=== PATIENT | female | born 1975 ===

== ENCOUNTER 2017-06-17 19:35 | Emergency (ER) | payer OTHER ==
[2017-06-17 19:35] VITALS: BMI 29.7
[2017-06-17 20:53] VITALS: BP 145/80; PULSE 74; RESP 16; TEMP 99; O2SAT 100
[2017-06-17] MEDS ORDERED: Sodium Chloride 0.9% 1,000 ML IV STA (21:06)
--- NOTE | 2017-06-17 21:07 | ED PDOC ---
Arrival/HPI - General Historian: Patient <Noel Soriano - Last Filed: 06/17/17 23:45> <Hadley Martinez - Last Filed: 06/20/17 07:31> - General Chief Complaint: Abdominal Pain Time Seen by Provider: 06/17/17 21:05 - History of Present Illness Narrative History of Present Illness (Text): 06/17/17 21:06 41 y/o female, pmh including migraine, allergic to penicillin, c/o suprapubic pressure with blood tinged urine and vaginal bleeding started today. Pt. stated that she feels on her menopausal period. Pt. feels the suprapubuc cramping on and off. Pt. has no fever or chills, no abdominal pain, no night sweat, no dizziness, no change in appetize, no other medial or psychological complaints. 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 - Neurological Hx Neurological Disorder: No Other/Comment: pitituary microadenoma - HEENT Hx HEENT Disorder: No - Renal Hx Renal Disorder: No Other/Comment: kidneys attached together - Endocrine/Metabolic Hx Endocrine Disorders: No - Hematological/Oncological Hx Blood Disorders: No - Integumentary Hx Dermatological Disorder: No - Musculoskeletal/Rheumatological Hx Musculoskeletal Disorders: No - Gastrointestinal Hx Gastrointestinal Disorders: No - Genitourinary/Gynecological Hx Genitourinary Disorders: No - Psychiatric Hx Depression: No Hx Substance Use: No - Surgical History Hx Section: Yes Hx Cholecystectomy: Yes - Anesthesia Hx Anesthesia: No - Suicidal Assessment Feels Threatened In Home Enviroment: No <Noel Soriano - Last Filed: 06/17/17 23:45> Family/Social History - Physician Review Nursing Documentation Reviewed: Yes Family/Social History: Unknown Family HX Smoking Status: Never Smoked Hx Alcohol Use: No Hx Substance Use: No <Noel Soriano - Last Filed: 06/17/17 23:45> Allergies/Home Meds <Noel Soriano - Last Filed: 06/17/17 23:45> <Hadley Martinez - Last Filed: 06/20/17 07:31> Allergies/Adverse Reactions: Allergies Penicillins Allergy (Verified 09/15/16 00:45) RASH Home Medications: Home Meds Medication Instructions Recorded Confirmed Cabergoline 0.5 mg PO QWK 06/17/17 06/17/17 Review of Systems - Review of Systems Constitutional: absent: Fatigue, Fevers Eyes: absent: Vision Changes ENT: absent: Hearing Changes Respiratory: absent: SOB, Cough Cardiovascular: absent: Chest Pain Gastrointestinal: absent: Abdominal Pain, Nausea, Vomiting Genitourinary Female: Hematuria, Vaginal Bleeding. absent: Dysuria, Frequency, Urine Output Changes, Vaginal Discharge Musculoskeletal: absent: Arthralgias, Back Pain Skin: absent: Rash, Pruritis Neurological: absent: Headache, Dizziness, Focal Weakness <Noel Soriano - Last Filed: 06/17/17 23:45> Physical Exam Vital Signs Reviewed: Yes Temperature: Afebrile Blood Pressure: Normal Pulse: Regular Respiratory Rate: Normal Appearance: Positive for: Well-Appearing, Non-Toxic Pain Distress: Moderate Mental Status: Positive for: Alert and Oriented X 3 - Systems Exam Head: Present: Atraumatic, Normocephalic Pupils: Present: PERRL Extroacular Muscles: Present: EOMI Conjunctiva: Present: Normal Mouth: Present: Moist Mucous Membranes Neck: Present: Normal Range of Motion Respiratory/Chest: Present: Clear to Auscultation, Good Air Exchange. No: Respiratory Distress, Accessory Muscle Use Cardiovascular: Present: Regular Rate and Rhythm, Normal S1, S2. No: Murmurs Abdomen: Present: Normal Bowel Sounds. No: Tenderness, Distention, Peritoneal Signs, Rebound, Guarding Genitourinary/Pelvic Exam: Present: Normal External Genitalia, Vaginal Bleeding , Cervical os Closed, Other (Female Heel Cover Softener[facility] No: Vaginal Discharge, Vaginal Lesions, Adenexal Tenderness, Adenexal Mass, Cervical Motion Tendernes, Odor Back: Present: Normal Inspection, CVA Tenderness (+rt. cva), Other (no rash) Upper Extremity: Present: Normal Inspection. No: Cyanosis, Edema Lower Extremity: Present: Normal Inspection. No: Edema Neurological: Present: GCS=15, Speech Normal, Motor Func Grossly Intact, Gait Normal, Memory Normal Skin: Present: Warm, Dry, Normal Color. No: Rashes Psychiatric: Present: Alert, Oriented x 3, Normal Insight, Normal Concentration <Noel Soriano - Last Filed: 06/17/17 23:45> Medical Decision Making - Lab Interpretations I have reviewed the lab results: Yes Interpretation: No clinic. lab abnormalty <Noel Soriano - Last Filed: 06/17/17 23:45> <Hadley Martinez - Last Filed: 06/20/17 07:31> ED Course and Treatment: 06/17/17 21:10 -labs/ua -CT abdomen and pelvis -IVF -observe and reassess 06/17/17 23:05 -Labs are non-significant -CT show no acute findings or obstructing stone -Pt. has no vaginal bleeding, IV toradol ordered for pain -Pt. has no adnexal tenderness. 06/17/17 23:45 -Pt. feels better -Pt. feels like she's on her UTI, UA show no UTI, gc/chlamydia ordered, refused to be prophylatically treated, will give macrobid -Discharge home with macrobid, motrin, stay hydrated, bed rest, follow up with your own pmd and obgyn wuithin 2 days, return to the ER for any new or worsening signs or symptoms. (Noel Soriano) - Lab Interpretations Lab Results: 06/17/17 21:18 06/17/17 21:18 Lab Results 06/17/17 21:18: Sodium 141, Potassium 3.5 L, Chloride 106, Carbon Dioxide 26, Anion Gap 13, BUN 10, Creatinine 0.6, Est GFR ( Amer) > 60, Est GFR (Non- Af Amer) > 60, Random Glucose 100, Calcium 8.6, Total Bilirubin 0.4, AST 43 H, ALT 48, Alkaline Phosphatase 86, Total Protein 8.1, Albumin 4.2, Globulin 3.9, Albumin/Globulin Ratio 1.1 06/17/17 21:18: WBC 8.0 D, RBC 4.05, Hgb 12.9, Hct 37.1, MCV 91.6, MCH 31.9, MCHC 34.8, RDW 12.8, Plt Count 201, MPV 10.1, Gran % 72.9 H, Lymph % (Auto) 19.2 L, Gage % (Auto) 7.0 H, Eos % (Auto) 0.7 L, Baso % (Auto) 0.2, Gran # 5.86 , Lymph # 1.5, Gage # 0.6, Eos # 0.1, Baso # 0.02 06/17/17 21:07: Urine Color Yellow, Urine Appearance Clear, Urine pH 7.0, Ur Specific [place] 1.015, Urine Protein Negative, Urine Glucose (UA) Negative, Urine Ketones Negative, Urine Blood Large H, Urine Nitrate Negative, Urine Bilirubin Negative, Urine Urobilinogen 0.2, Ur Leukocyte Esterase Negative, Urine RBC 2 - 5, Urine WBC 0 - 2, Ur Epithelial Cells 0 - 2, Urine Bacteria Few - RAD Interpretation Radiology Orders: 06/17/17 21:28 ABDOMEN & PELVIS [ABD & PELVIS W/O PO OR IV CONT] [CT] Stat - Medication Orders Current Medication Orders: Discontinued Medications Sodium Chloride (Sodium Chloride 0.9%) 1,000 mls @ 999 mls/hr IV .Q1H1M STA Stop: 06/17/17 22:06 Last Admin: 06/17/17 21:35 Dose: 999 mls/hr Ketorolac Tromethamine (Toradol) 30 mg IVP STAT STA Stop: 06/17/17 23:07 Last Admin: 06/17/17 23:25 Dose: 30 mg Potassium Chloride (K-Dur 20 Meq Er Tab) 20 meq PO STAT STA Stop: 06/17/17 22:27 Last Admin: 06/17/17 22:52 Dose: 20 meq - PA / DESIGN PRINTER BALLOON / Resident Statement ABIMAEL has reviewed & agrees with the documentation as recorded. <Noel Soriano - Last Filed: 06/17/17 23:45> - PA / DESIGN PRINTER BALLOON / Resident Statement ABIMAEL has reviewed & agrees with the documentation as recorded. <Hadley Martinez - Last Filed: 06/20/17 07:31> Disposition/Present on Arrival - Present on Arrival Any Indicators Present on Arrival: No History of DVT/PE: No History of Uncontrolled Diabetes: No Urinary Catheter: No History of Decub. Ulcer: No History Surgical Site Infection Following: None - Disposition Have Diagnosis and Disposition been Completed?: Yes Disposition Time: 23:48 Patient Plan: Discharge <Noel Soriano - Last Filed: 06/17/17 23:45> <Hadley Martinez - Last Filed: 06/20/17 07:31> - Disposition Diagnosis: Vaginal bleeding Disposition: HOME/ ROUTINE Condition: IMPROVED Additional Instructions: -Discharge home with macrobid, motrin, stay hydrated, bed rest, follow up with your own pmd and obgyn wuithin 2 days, return to the ER for any new or worsening signs or symptoms. Prescriptions: Ibuprofen [Motrin Tab] 600 mg PO QID PRN #24 tab PRN Reason: Other Nitrofurantoin Macrocrystals [Macrobid] 100 mg PO BID #14 cap Referrals: PCP,NO [Primary Care Provider] - Follow up with primary Edith Juarez MD [Staff Provider] - Follow up with primary [facility] [place] - Follow up with primary Forms: [email or web address] (Macedonian), WORK NOTE
[2017-06-17 21:16] LABS: URINE BILIRUBIN NEGATIVE (NEGATIVE); URINE BLOOD LARGE (NEGATIVE); URINE GLUCOSE (UA) NEGATIVE (NEGATIVE); URINE LEUKOCYTE ESTERASE NEGATIVE Leu/uL (NEGATIVE); URINE NITRATE NEGATIVE (NEGATIVE); URINE PROTEIN NEGATIVE mg/dL (<30 mg/dL); URINE UROBILINOGEN 0.2 E.U./dL (<1 E.U./dL)
[2017-06-17 21:29] LABS: BASO # 0.02 K/mm3 (0.0-2.0); BASO % 0.2 % (0.0-3.0); EOS # 0.1 (0.0-0.7); EOS % 0.7 % (1.5-5.0); GRAN # 5.86 (1.4-6.5); GRAN % 72.9 % (50.0-68.0); HEMOGLOBIN 12.9 g/dL (12.0-16.0); LYMPH # 1.5 (1.2-3.4); LYMPH % 19.2 % (22.0-35.0); MEAN CELL VOLUME 91.6 fl (80.0-105.0); MEAN CORPUSCULAR HEMOGLOBIN 31.9 pg (25.0-35.0); MEAN CORPUSCULAR HGB CONC 34.8 g/dl (31.0-37.0); MEAN PLATELET VOLUME 10.1 fl (7.0-11.0); MONO # 0.6 (0.1-0.6); PLATELET COUNT 201 10^3/uL (120.0-450.0); RBC 4.05 10^6/uL (3.5-6.1); RED CELL DISTRIBUTION WIDTH 12.8 % (11.5-14.5)
[2017-06-17 21:38] LABS: ALB/GLOB RATIO 1.1 (1.1-1.8); ALBUMIN 4.2 g/dL (3.0-4.8); ALT/SGPT 48 U/L (7-56); AST/SGOT 43 U/L (15-39); BLOOD UREA NITROGEN 10 mg/dL (7-21); CALCIUM 8.6 mg/dL (8.4-10.5); GFR AFRICAN-AMERICAN > 60; GFR NON-AFRICAN AMERICAN > 60
[2017-06-17 21:41] LABS: URINE APPEARANCE CLEAR (CLEAR); URINE COLOR YELLOW (YELLOW)
[2017-06-17 21:58] LABS: URINE BACTERIA FEW (NEG); URINE EPITHELIAL CELLS 0 - 2 /hpf (0-5); URINE WBC 0 - 2 /hpf (0-6)
--- NOTE | 2017-06-17 22:22 | CT ---
EXAM: CT Abdomen and Pelvis Without Intravenous Contrast CLINICAL HISTORY: 41 years old, female; Pain; Abdominal pain; Flank; Right; Additional info: Rt. Flank pain and hematuria TECHNIQUE: Axial computed tomography images of the abdomen and pelvis without intravenous contrast. This CT exam was performed using one or more of the following dose reduction techniques: automated exposure control, adjustment of the mA and/or kV according to patient size, and/or use of iterative reconstruction technique. Coronal and sagittal reformatted images were created and reviewed. COMPARISON: CT - ABD PELVIS W/O PO OR IV CONT 09/15/2016 1:47:07 AM FINDINGS: Lower thorax: No acute findings. ABDOMEN: Liver: Unremarkable. Gallbladder and bile ducts: Cholecystectomy. No ductal dilation. Pancreas: Unremarkable. No ductal dilation. Spleen: No splenomegaly. Adrenals: No mass. 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 No renal calculi. No hydronephrosis. Stomach and bowel: No definite mural thickening. No obstruction. Appendix: Normal caliber. No inflammation. PELVIS: Bladder: Unremarkable. No stones. Reproductive: Unremarkable as visualized. ABDOMEN and PELVIS: Intraperitoneal space: No significant fluid collection. No free air. Bones/joints: No acute fracture. Soft tissues: Injection granulomas within gluteal soft tissues. Vasculature: Unremarkable. No aneurysm. Lymph nodes: Few calcified lymph nodes within mesentery. IMPRESSION: 1. No CT evidence of urolithiasis. 2. Incidental/non-acute findings are described above.
[2017-06-17] MEDS ORDERED: Potassium Chloride 20 mEq ER Tab PO STA (22:26)
== END 2017-06-17 23:49 | disposition home or self-care (01) ==
LOC: ED 19:35
DX: N93.9 Abnormal uterine and vaginal bleeding, unspecified (principal)
CPT/HCPCS: 74176; 80053; 81001; 85025; 96374; 99283; J1885; J7040

== ENCOUNTER 2017-08-14 22:48 | Emergency (ER) | payer OTHER ==
[2017-08-14 22:54] VITALS: BMI 28.7
[2017-08-14 23:22] VITALS: BP 135/62; PULSE 75; RESP 18; TEMP 98; O2SAT 99
--- NOTE | 2017-08-14 23:36 | ED PDOC ---
Arrival/HPI <Isaac Adknis - Last Filed: 08/15/17 03:18> <NunezMick - Last Filed: 08/15/17 03:56> - General Chief Complaint: Chest Pain Time Seen by Provider: 08/14/17 23:03 - History of Present Illness Narrative History of Present Illness (Text): 41 year old female with a past medical history of pituitary microadenoma, complex migraines, and recently completed tuberculosis prophylaxis/treatment who presents with chest discomfort and paresthesias. She was laying in bed at 5: 00 PM and had a 3 minute episode of palpitations, right hand, right face, and right foot tingling that spontaneously resolved. She denies nausea, vomiting, shortness of breath, diaphoresis or unilateral weakness and numbness, visual changes or focal neurologic deficits. She denies any tobacco or illicit drug use or a family history significant for CAD or premature from [place]. She has a family history significant for DM and thyroid disease. 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 - Neurological Hx Neurological Disorder: No Other/Comment: pitituary microadenoma - HEENT Hx HEENT Disorder: No - Renal Hx Renal Disorder: No Other/Comment: kidneys attached together - Endocrine/Metabolic Hx Endocrine Disorders: No - Hematological/Oncological Hx Blood Disorders: No - Integumentary Hx Dermatological Disorder: No - Musculoskeletal/Rheumatological Hx Musculoskeletal Disorders: No - Gastrointestinal Hx Gastrointestinal Disorders: No - Genitourinary/Gynecological Hx Genitourinary Disorders: No - Psychiatric Hx Depression: No Hx Substance Use: No - Surgical History Hx Section: Yes (x2) Hx Cholecystectomy: Yes Hx Dilation and Curettage: Yes - Anesthesia Hx Anesthesia: Yes Hx Anesthesia Reactions: No Hx Malignant Hyperthermia: No - Suicidal Assessment Feels Threatened In Home Enviroment: No <Isaac Adkins - Last Filed: 08/15/17 03:18> Family/Social History - Physician Review Nursing Documentation Reviewed: Yes Family/Social History: Diabetes Smoking Status: Never Smoked Hx Alcohol Use: No Hx Substance Use: No <Isaac Adkins - Last Filed: 08/15/17 03:18> Allergies/Home Meds <Isaac Adkins - Last Filed: 08/15/17 03:18> <Mick Nunez - Last Filed: 08/15/17 03:56> Allergies/Adverse Reactions: Allergies Penicillins Allergy (Verified 09/15/16 00:45) RASH Home Medications: Home Meds Medication Instructions Recorded Confirmed Cabergoline 0.5 mg PO QWK 06/17/17 08/14/17 Review of Systems - Review of Systems Constitutional: Normal. absent: Fatigue, Weight Change, Fevers Eyes: absent: Vision Changes, Photophobia Respiratory: Normal. absent: SOB, Cough Cardiovascular: Palpitations. absent: Calf Pain Gastrointestinal: Normal. absent: Nausea, Vomiting Musculoskeletal: Normal. absent: Back Pain, Neck Pain Skin: Normal. absent: Rash, Skin Lesions Neurological: absent: Facial Droop, Disequilibrium Endocrine: absent: Polydipsia Hemo/Lymphatic: absent: Easy Bleeding, Easy Bruising Psychiatric: absent: Anxiety, Depression <Isaac Adkins - Last Filed: 08/15/17 03:18> Physical Exam Temperature: Afebrile Blood Pressure: Normal Pulse: Regular Respiratory Rate: Normal Appearance: Positive for: Well-Appearing, Non-Toxic Pain Distress: None Mental Status: Positive for: Alert and Oriented X 3 - Systems Exam Head: Present: Atraumatic, Normocephalic Pupils: Present: PERRL Extroacular Muscles: Present: EOMI Conjunctiva: Present: Injected Mouth: Present: Moist Mucous Membranes Pharnyx: Present: Normal. No: ERYTHEMA, EXUDATE Neck: Present: Normal Range of Motion. No: JVD, Bruit Respiratory/Chest: Present: Clear to Auscultation, Good Air Exchange. No: Respiratory Distress, Accessory Muscle Use Cardiovascular: Present: Regular Rate and Rhythm, Normal S1, S2 Abdomen: Present: Normal Bowel Sounds. No: Tenderness, Distention Back: Present: Normal Inspection. No: CVA Tenderness Upper Extremity: Present: Normal Inspection, Neurovascularly Intact Lower Extremity: Present: Normal Inspection. No: Edema Neurological: Present: CN II-XII Intact, Speech Normal, Motor Func Grossly Intact, Normal Sensory Function, Normal Cerebellar Funct Skin: Present: Warm, Dry, Normal Color. No: Diaphoretic Psychiatric: Present: Alert, Oriented x 3, Normal Insight, Normal Concentration <Isaac Adkins - Last Filed: 08/15/17 03:18> Vital Signs Temp Pulse Resp BP Pulse Ox 08/14/17 23:21 98 F 75 18 135/62 99 Medical Decision Making <Isaac Adkins - Last Filed: 08/15/17 03:18> - Lab Interpretations I have reviewed the lab results: Yes - EKG Interpretation Interpreted by ED Physician: Yes Type: 12 lead EKG <Mick Nunez - Last Filed: 08/15/17 03:56> ED Course and Treatment: EKG shows normal sinus rhythm and normal rate. D-Dimer negative. K was 3.2, repleted with 40 mg K-dur. Serum Magnesium ordered. Second Troponin I timed at 2:45. 08/15/17 00:15 Mg 2.1, troponin x2 negative. 08/15/17 03:31 (Isaac Adkins) 08/15/17 00:56 41-year-old female who presents with symptoms of atypical chest pain no cardiac risk factors whatsoever. Likely GERD however due to the atypical nature we will check serial troponins and likely discharge her heart score is zero Interviewed and examined the patient myself along with the resident and she'll manage the patient second cardiac markers negative patient is very low risk for cardiac disease we will discharge she is to follow-up as an outpatient. She had mild hypokalemia which is repleted with by mouth medication for signs of hypoglycemia. 08/15/17 03:55 (Mick Nunez) - Lab Interpretations Lab Results: 08/15/17 00:15 Lab Results 08/15/17 03:01: Magnesium 2.1, Troponin I < 0.01 08/15/17 00:54: POC Glucose (mg/dL) 90 08/15/17 00:15: D-Dimer, Quantitative 0.28 08/15/17 00:15: PT 11.3, INR 1.05, APTT 29.7 08/15/17 00:15: Sodium 141, Potassium 3.2 L, Chloride 105, Carbon Dioxide 26, Anion Gap 13, BUN 15, Creatinine 0.6 L, Est GFR ( Amer) > 60, Est GFR ( Non-Af Amer) > 60, Random Glucose 98, Calcium 8.7, Total Bilirubin 0.6, AST 33, ALT 36, Alkaline Phosphatase 72, Lactate Dehydrogenase 347, Total Creatine Kinase 60, Troponin I < 0.01, Total Protein 7.6, Albumin 4.1, Globulin 3.5, Albumin/Globulin Ratio 1.2 - RAD Interpretation Radiology Orders: 08/14/17 23:12 X-RAY [CHEST PORTABLE] [RAD] Stat - EKG Interpretation EKG Interpretation (Text): 08/15/17 00:55 Normal sinus rhythm at 74 bpm left axis deviation no ST changes QTc is 439 ms QRS is 100 ms [place] interval is 154 ms no ectopy interpretation: normal EKG (Mick Nunez) - Medication Orders Current Medication Orders: Discontinued Medications Al Hydrox/Mg Hydrox/Simethicone (Maalox Plus 30 Ml) 30 ml PO STAT STA Stop: 08/15/17 00:03 Last Admin: 08/15/17 00:43 Dose: 30 ml Belladonna/Phenobarbital ( Elixir) 5 ml PO STAT STA Stop: 08/15/17 00:07 Last Admin: 08/15/17 00:43 Dose: 5 ml Diazepam (Valium) 2 mg PO ONCE ONE PRN Reason: Protocol Stop: 08/15/17 00:13 Last Admin: 08/15/17 00:43 Dose: 2 mg Lidocaine HCl (Lidocaine 2% Viscous) 15 ml PO STAT STA Stop: 08/15/17 00:06 Last Admin: 08/15/17 00:43 Dose: 15 ml Potassium Chloride (K-Dur 20 Meq Er Tab) 40 meq PO STAT STA Stop: 08/15/17 01:20 Last Admin: 08/15/17 02:05 Dose: 40 meq - PA / TELETYPEWRITER OPERATOR / Resident Statement /DO has examined the patient and agrees with the treatment plan. <Mick Nunez - Last Filed: 08/15/17 03:56> Disposition/Present on Arrival - Present on Arrival Any Indicators Present on Arrival: No History of DVT/PE: No History of Uncontrolled Diabetes: No Urinary Catheter: No History of Decub. Ulcer: No History Surgical Site Infection Following: None <Isaac Adkins - Last Filed: 08/15/17 03:18> - Present on Arrival Any Indicators Present on Arrival: No History of DVT/PE: No History of Uncontrolled Diabetes: No Urinary Catheter: No History of Decub. Ulcer: No - Disposition Have Diagnosis and Disposition been Completed?: Yes Disposition Time: 03:43 Patient Plan: Discharge <Nunez,Mick P - Last Filed: 08/15/17 03:56> - Disposition Diagnosis: Chest pain, Anxiety Disposition: HOME/ ROUTINE Patient Problems: Current Active Problems Problem Status Onset Anxiety Acute Chest pain Acute Chest pain Acute Chest pain Acute Condition: IMPROVED Discharge Instructions (ExitCare): Chest Pain (ED), Hypokalemia (ED), Generalized Anxiety Disorder (ED), Gastroesophageal Reflux Disease (ED) Print Language: COMORAN Prescriptions: Famotidine [Pepcid] 20 mg PO BID #30 tab Referrals: at [facility] [place] [Outside] - Follow up with primary (followup for your medical issues and for treatment of gastritis and anxiety) Wayne Murcia MD [Staff Provider] - Follow up with primary (followup for a stress test if your pain continues. ) Forms: [employer] (Tongan)
[2017-08-15] MEDS ORDERED: Alum-Mag Hydrox-Simethicone Susp (30 mL) PO STA (00:02)
[2017-08-15] MEDS ORDERED: Atrop/Hyosc/Scopal/PB Elixir (120 ml) PO STA (00:06)
[2017-08-15 01:00] LABS: ALB/GLOB RATIO 1.2 (1.1-1.8); ALKALINE PHOSPHATASE 72 U/L (38-126); ALT/SGPT 36 U/L (7-56); AST/SGOT 33 U/L (14-36); BILIRUBIN,TOTAL 0.6 mg/dL (0.2-1.3); BLOOD UREA NITROGEN 15 mg/dL (7-21); CALCIUM 8.7 mg/dL (8.4-10.5); CARBON DIOXIDE 26 mmol/L (21-33); CHLORIDE 105 mmol/L (98-107); GFR AFRICAN-AMERICAN > 60; GLUCOSE,RANDOM 98 mg/dL (70-110); POTASSIUM 3.2 mmol/L (3.6-5.0); SODIUM 141 mmol/L (132-148); TOTAL PROTEIN 7.6 g/dL (5.8-8.3)
[2017-08-15 01:06] LABS: INR 1.05 (0.93-1.08); PARTIAL THROMBOPLASTIN TIME 29.7 Seconds (23.7-30.8)
[2017-08-15 01:14] LABS: TROPONIN I < 0.01 ng/mL
[2017-08-15] MEDS ORDERED: Potassium Chloride 20 mEq ER Tab PO STA (01:19)
[2017-08-15 03:27] LABS: MAGNESIUM 2.1 mg/dL (1.7-2.2)
[2017-08-15 03:40] LABS: TROPONIN I < 0.01 ng/mL
--- NOTE | 2017-08-15 08:26 | RAD ---
HISTORY: Chest pain COMPARISON: No prior. FINDINGS: LUNGS: The lungs are well inflated and clear. PLEURA: No significant pleural effusion identified, no pneumothorax apparent. CARDIOVASCULAR: Normal. OSSEOUS STRUCTURES: No significant abnormalities. VISUALIZED UPPER ABDOMEN: Normal. OTHER FINDINGS: None. IMPRESSION: No active pulmonary disease.
--- NOTE | 2017-08-15 21:34 | CARD ---
APPROVED REPORT EKG Measurement Heart [id number] <Conclusion> Normal sinus rhythm Normal ECG
== END 2017-08-15 04:17 | disposition home or self-care (01) ==
LOC: ED 22:48
DX: R07.9 Chest pain, unspecified (principal); F41.9 Anxiety disorder, unspecified